=== PATIENT | female | born 1950 | race Caucasian/White ===

== ENCOUNTER → 2019-06-21 | Outpatient (CLI) | payer MEDICARE, BC ==
[2016-03-11 20:30] VITALS: BP 119/68
--- NOTE | 2019-06-21 08:53 | RAD ---
EXAM: Foot, 3 views. HISTORY: Tripped. Pain. COMPARISON: None. FINDINGS: 3 views left foot are obtained. There is no fracture, dislocation or subluxation. There is lucency involving the lateral tuft of the first distal phalanx, likely due to an osseous ridge. IMPRESSION: No acute osseous finding. Electronically signed by: Karime French MD (06/21/2019 8:50 AM) [id number]
== END | disposition home or self-care (01) ==
LOC: PMG 07:49
PROVIDERS: ATTEND Physician Assistant Medical
DX: M79.672 Pain in left foot (principal); W18.40XA Slipping, tripping and stumbling without falling, unspecified, initial encounter; Y93.89 Activity, other specified; Y92.89 Other specified places as the place of occurrence of the external cause; Y99.8 Other external cause status
CPT/HCPCS: 73630

== ENCOUNTER → 2020-06-27 | Outpatient (CLI) | payer MEDICARE, BC ==
[2016-03-11 20:30] VITALS: BP 119/68
--- NOTE | 2020-06-27 16:25 | RAD ---
DATE: 06/27/2020 9:29 AM EXAM: MAMMO MATT SCREENING BILATERAL HISTORY: Screening COMPARISON: 02/06/2010 Bilateral CC and MLO views of the breasts were performed. Bilateral breast tomosynthesis was performed in CC and MLO projections. This study was interpreted with the benefit of Computerized Aided Detection (CAD). FINDINGS: Breast Density: HETERO The breast parenchyma Is heterogeneously dense, which could reduce sensitivity of mammography. Breast parenchyma level C No suspicious masses, microcalcifications or architectural distortion is present to suggest malignancy in either breast. The visualized axillae are unremarkable. IMPRESSION: No mammographic evidence of malignancy. BI-RADS CATEGORY: 1 NEGATIVE RECOMMENDED FOLLOW-UP: 12M 12 MONTH FOLLOW-UP Annual screening mammography is recommended, unless clinically indicated sooner based on symptoms or change in physical exam. PQRS compliance statement: Patient information was entered into a reminder system with a target due date for the next mammogram. Mammography is a sensitive method for finding small breast cancers, but it does not detect them all and is not a substitute for careful clinical examination. A negative mammogram does not negate a clinically suspicious finding and should not result in delay in biopsying a clinically suspicious abnormality. "Our facility is accredited by the [employer] Mammography Program."
== END | disposition home or self-care (01) ==
LOC: MAMMO 09:11
PROVIDERS: ATTEND Physician Assistant Medical
DX: Z12.31 Encounter for screening mammogram for malignant neoplasm of breast (principal)
CPT/HCPCS: 77063; 77067

== ENCOUNTER → 2020-07-02 | Outpatient (CLI) | payer MEDICARE, BC ==
[2016-03-11 20:30] VITALS: BP 119/68
--- NOTE | 2020-07-02 17:47 | RAD ---
EXAM: CHEST 2 VIEWS. HISTORY: Smoking history. COMPARISON: None. FINDINGS: Frontal and lateral views of the chest are obtained. A vague nodular opacity in the right upper lobe projects over the posterior sixth posterior rib and measures 14 mm. Hyperinflation is consistent with chronic obstructive pulmonary disease. There is no pneumothorax or pleural effusion. The heart is not enlarged. There are mild aortic atherosclerotic calcifications. A mild superior plate compression deformity is noted at what appears to be T6. IMPRESSION: 1. Suspect a 14 mm nodule in the right upper lobe. CT of the chest could further exclude a parenchymal lesion if the diagnosis remains unclear. 2. Chronic obstructive pulmonary disease. Electronically signed by: Amina Holt MD (07/02/2020 5:44 PM) [id number]
== END | disposition home or self-care (01) ==
LOC: PMG 14:22
PROVIDERS: ATTEND Physician Assistant Medical
DX: J44.9 Chronic obstructive pulmonary disease, unspecified (principal); R91.1 Solitary pulmonary nodule; I70.0 Atherosclerosis of aorta; M43.8X4 Other specified deforming dorsopathies, thoracic region; F17.200 Nicotine dependence, unspecified, uncomplicated
CPT/HCPCS: 71046

== ENCOUNTER → 2020-09-17 | Outpatient (CLI) | payer MEDICARE, BC ==
[2016-03-11 20:30] VITALS: BP 119/68
--- NOTE | 2020-09-17 12:54 | RAD ---
EXAM: Chest CT without intravenous contrast. HISTORY: Cigarette smoking. TECHNIQUE: Computed tomographic images of the chest were obtained without contrast. Multiplanar reformatting was performed. *One or more of the following individualized dose reduction techniques were utilized for this examination: 1. Automated exposure control. 2. Adjustment of the mA and/or kV according to patient size. 3. Use of iterative reconstruction technique. COMPARISON: Chest radiograph dated 07/02/2020. FINDINGS: The heart is normal in size. There are nonspecific mediastinal and hilar lymph nodes. These are not pathologically enlarged. There is no pneumothorax or pleural effusion. There is upper lobe predominant emphysema. There is a 1.9 cm spiculated nodular opacity within the right upper lobe abutting the superior aspect of the major fissure. There is surrounding groundglass opacity and internal areas of lucency due to aforementioned emphysema rather than cavitation. There is a 3 mm groundglass nodule within the superior segment of the left upper lobe (series 2, image 117). There is a 4 mm groundglass opacity within the left upper lobe (series 2, image 119). There is a 3 mm groundglass nodule within the left upper lobe processes series 2, image 132). There is a 3 mm groundglass nodule within the right lung apex (series 2, image 43). There is a 2 mm nodule within the anterior right upper lobe (series 2, image 101). There is a 3 mm groundglass nodule within the lateral right upper lobe (series 2, image 159). There are few additional smaller tiny groundglass nodular opacities within both lungs, some which are pleural-based. There is no acute finding involving the upper abdomen. There is no suspicious osseous lesion. There are degenerative changes involving the spine. There is a moderate chronic compression fracture at T6 and chronic superior endplate depression with associated Schmorl's node at T11. IMPRESSION: 1. 1.9 cm spiculated nodular opacity with stranding groundglass within the posterior right upper lobe abutting the pleural fissure. This may be postinfectious or neoplastic in etiology. This is within limits in size for assessment with PET/CT. 2. Several tiny groundglass nodular opacities within both lungs measuring up to 4 mm. These are too small to characterize with PET/CT. Attention the time of follow-up is recommended. 3. Pulmonary emphysema. Electronically signed by: Karime French MD (09/17/2020 12:51 PM) [id number]
== END ==
LOC: CT 11:30
PROVIDERS: ATTEND Physician Assistant Medical
DX: R91.1 Solitary pulmonary nodule (principal); J43.9 Emphysema, unspecified
CPT/HCPCS: 71250